=== PATIENT | male | born 1940 | race Caucasian/White ===

== ENCOUNTER → 2017-07-30 | Outpatient (CLI) | payer MEDICARE, BC ==
[2017-07-30 16:26] LABS: Basophils # (A) 0.1 k/uL (0-0.2); Basophils % (A) 1 %; CH 30.2; CHCM 32.2; Eosinophils # (A) 0.2 k/uL (0-0.7); Eosinophils % (A) 2 %; HCT 49.3 % (39.0-53.0); HDW 2.17; HGB 15.6 gm/dL (13.0-17.5); Luc # (Auto) 0.24; Luc % (Auto) 3; Lymphocytes # (A) 2.4 k/uL (1.0-4.8); Lymphocytes % (A) 29 %; MCH 29.8 pg (25.0-35.0); MCHC 31.6 g/dL (31.0-37.0); MCV 94.2 fL (80.0-100.0); Mean Platelet Volume 8.3; Monocytes # (A) 0.5 k/uL (0-1.0); Monocytes % (A) 6 %; Neutrophils # (A) 4.8 k/uL (1.3-7.7); Neutrophils % (A) 59 %; RBC 5.23 m/uL (4.30-5.90); RDW 14.8 % (11.5-15.5); WBC 8.2 k/uL (3.8-10.6); WBC (Perox) 8.13
[2017-07-30 16:38] LABS: Potassium 4.2 mmol/L (3.5-5.1)
== END | disposition home or self-care (01) ==
LOC: LABPAT 15:12
PROVIDERS: ATTEND Orthopaedic Surgery
DX: Z01.812 Encounter for preprocedural laboratory examination (principal)
CPT/HCPCS: 36415; 80051; 85025

== ENCOUNTER 2017-10-16 12:06 | Day surgery (SDC) | payer OTHER ==
[2017-10-13 14:35] VITALS: BMI 28.8
--- NOTE | 2017-10-15 16:05 | HP ---
HISTORY AND PHYSICAL DATE OF SURGERY: 10/16/2017 Saturnino Masters is a 77-year-old patient seen with symptomatic right carpal tunnel syndrome. We discussed treatment options. He elected to proceed with decompression, right median nerve. Consent regarding the procedure was obtained. PAST MEDICAL HISTORY: Hypertension. PAST SURGICAL HISTORY: 1. Herniorrhaphy. 2. Decompression, left median nerve. DAILY MEDICATIONS: 1. Aspirin. 2. Vitamins. ALLERGIES: NONE REPORTED. SOCIAL HISTORY: Patient denies current tobacco use. PHYSICAL EVALUATION OF THE RIGHT HAND: Positive carpal compression, carpal Tinel's causing numbness and tingling in the median nerve distribution. No tenderness along the A1 del sites. There is decreased sensation throughout the median nerve distribution. There is a good radial pulse is present, good perfusion and sensation distally. Previous radiographs of the right wrist and hand revealed carpometacarpal osteoarthritis. EMG of the upper extremities revealed severe carpal tunnel syndrome. IMPRESSION: Right carpal tunnel syndrome. PLAN: Decompression, right median nerve. MMODL / IJN: [id number] /
[~2017-10-16 12:06] MED LIST: DEXAMETHASONE SOD PHOSPHATE 10 MG/ML 1 ML VIAL IV ONE; HYDROmorphone 0.5 MG/0.5 ML SYRINGE IVP PRN; LACTATED RINGERS 1,000 ML IV SCH; LIDOCAINE 1% 20 ML VIAL (10MG/ML) FOR IV START INTRADERMA PRN; MIDAZOLAM 2 MG/2 ML VIAL IV PRN; ONDANSETRON 4 MG/2 ML VIAL IVP ONE; SCOPOLAMINE 1.5MG/72HR PATCH TRANSDERM ONE; ceFAZolin 1,000 MG in DEXTROSE/WATER 1 50ML.BAG IV ONE
[2017-10-16 12:56] VITALS: RESP 16; TEMP 98.4
[2017-10-16] MEDS ORDERED: MIDAZOLAM 2 MG/2 ML VIAL ONE (14:55)
[2017-10-16] MEDS ORDERED: PROPOFOL 10 MG/ML 20 ML VIAL IV ONE (14:55)
[2017-10-16] MEDS ORDERED: fentaNYL (PF) 50 MCG/ML 2 ML AMP ONE (14:55)
[2017-10-16] MEDS ORDERED: LIDOCAINE 1% INJ 10MG/ML (20 ML MDV) ONE (14:55)
[2017-10-16] MEDS ORDERED: SODIUM CHLORIDE 0.9% 50 ML with ceFAZolin 2,000 MG IV ONE ×2 (15:00)
[2017-10-16] MEDS ORDERED: BUPIVACAINE (PF) 0.25% 30 ML VIAL SQ ONE (15:12)
--- NOTE | 2017-10-16 15:33 | P.OP ---
Date of Procedure: 10/16/17 Preoperative Diagnosis: Right carpal tunnel syndrome Postoperative Diagnosis: Right carpal tunnel syndrome Procedure(s) Performed: Decompression right median nerve Anesthesia: MATTHEW local Surgeon: Omar Cordova Estimated Blood Loss (ml): 0 Pathology: none sent Condition: stable Disposition: PACU Indications for Procedure: 77-year-old patient seen with symptomatic right carpal tunnel syndrome. After treatment options were discussed, he elected to proceed with decompression right median nerve. Operative Findings: See description of procedure Description of Procedure: The patient was taken to the operative suite. The patient underwent IV sedation by the department of anesthesia. The patient received preoperative IV antibiotics. A well-padded tourniquet was placed proximal right upper extremity. The right upper extremity was prepped and draped in the normal sterile orthopedic fashion. I infiltrated the proposed incision site with 14 mL quarter percent plain Marcaine. When sufficient local analgesia locally was noted the extremity was elevated and tourniquet insufflated to 250. I now made an incision beginning at the distal volar wrist crease extending distally 3 cm in line with the fourth metacarpal sharply through skin. Dissection was taken down through subcu soft tissues and through the palmar fascia to the transverse carpal ligament. I now incised the transverse carpal ligament. I completed that released proximally and distally with blunt Metzenbaums. I noted good complete release of the transverse carpal ligament and good decompression of the nerve. There appeared be good hemostasis. The skin margins were proximal nylon suture. We applied a sterile dressing followed by sterile web roll and a loose Noel bandage. The tourniquet was released with immediate capillary refill of all digits noted. The patient was awakened and transferred to recovery stable condition.
[2017-10-16 16:07] VITALS: PULSE 64
[2017-10-16 16:31] VITALS: BP 160/70
== END 2017-10-16 16:39 | disposition home or self-care (01) ==
LOC: OR 12:06
PROVIDERS: ATTEND Orthopaedic Surgery
DX: G56.01 Carpal tunnel syndrome, right upper limb (principal); I10 Essential (primary) hypertension; E78.5 Hyperlipidemia, unspecified; J44.9 Chronic obstructive pulmonary disease, unspecified; N40.0 Benign prostatic hyperplasia without lower urinary tract symptoms; Z79.899 Other long term (current) drug therapy; Z79.82 Long term (current) use of aspirin
CPT/HCPCS: 64721; J1100; J2405; J0690